=== PATIENT | female | born 1980 | race African-American/Black ===

== ENCOUNTER → 2020-03-18 | Outpatient (CLI) | payer BC ==
--- NOTE | 2020-03-18 15:48 | Diagnostic Imaging Report ---
EXAM: Bilateral breast ultrasound, limited. INDICATION: Bilateral nipple discharge. The diagnostic mammogram performed prior to this study failed to show any sign of malignancy. There is no abnormality to account for the patient's bilateral nipple discharge either. On this study, there is no discrete solid or cystic mass in either retroareolar region. There is no abnormality in the superior aspect of the right breast to coincide with the asymmetry seen on the mammogram. Most likely that finding was secondary to fibroglandular tissue. IMPRESSION: ACR category 1. There is no evidence of malignancy. There is no abnormality to account for the patient's bilateral nipple discharge either. Clinical follow-up is recommended. ACR BI-RADS Category 1: Negative. Result letter will be mailed to the patient. Note: At least 10% of breast cancer is not imaged by mammography. Dictated by: Dictated on workstation # [id number]
--- NOTE | 2020-03-18 16:35 | Diagnostic Imaging Report ---
EXAM: Digital mammogram, bilateral diagnostic. INDICATION: Bilateral nipple discharge COMPARISON: This is the patient's baseline study. At this time, she does complain of yellowish discharge from each nipple. The fibroglandular tissue in both breasts is dense. This does limit the sensitivity of this exam. There is no abnormality in either retroareolar region to account for the patient's nipple discharge. On the craniocaudad view of the right breast in the mid medial aspect of the breast approximately 6 mm from the nipple, there is an 8.2 mm asymmetry. This finding does not seem to persist on the tomographic images nor can it be identified with certainty on the true lateral and MLO views. There may be a small corresponding area of slightly increased density in the midportion of the breast on the MLO view, however. I suspect this asymmetry is secondary to fibroglandular tissue. Even so, I would recommend that ultrasound of the upper medial aspect of the right breast be performed for further study. Ultrasound of both retroareolar regions should also be performed. IMPRESSION: ACR category 0. There is no evidence for malignancy or for an abnormality to account for the patient's nipple discharge. Ultrasound of both breasts would be recommended for further study. ACR BI-RADS Category 0: Incomplete. (Needs additional imaging evaluation). Result letter will be mailed to the patient. Note: At least 10% of breast cancer is not imaged by mammography. Dictated by: Dictated on workstation # [id number]
== END ==
LOC: RAD 14:15
PROVIDERS: ATTEND Obstetrics & Gynecology
DX: N64.52 Nipple discharge (principal); Z80.3 Family history of malignant neoplasm of breast
CPT/HCPCS: 76642; 77066; G0279; 77062

== ENCOUNTER → 2021-08-01 | Outpatient (CLI) | payer BC ==
--- NOTE | 2021-08-01 09:51 | Diagnostic Imaging Report ---
INDICATION: Routine screening. COMPARISON: 03/18/2020. TECHNIQUE: 2D and 3D bilateral screening mammography was performed with CAD. FINDINGS: Both breasts are heterogeneously dense, limiting the sensitivity of mammography. There is a somewhat rounded density in the superior right breast at posterior depth, best seen on the MLO view. This appears to be laterally located on the tomographic images. Additional views are recommended. The left breast is unremarkable. No malignant-appearing microcalcifications are seen. The axillae are unremarkable. IMPRESSION: Right breast density. Additional views are recommended for further evaluation. ACR BI-RADS Category 0: Incomplete. (Needs additional imaging evaluation). Result letter will be mailed to the patient. Note: At least 10% of breast cancer is not imaged by mammography. Dictated by: Dictated on workstation # [id number]
== END ==
LOC: RAD 09:00
PROVIDERS: ATTEND Nurse Practitioner Family
DX: Z12.31 Encounter for screening mammogram for malignant neoplasm of breast (principal)
CPT/HCPCS: 77063; 77067

== ENCOUNTER → 2021-08-10 | Outpatient (CLI) | payer BC ==
--- NOTE | 2021-08-10 10:34 | Diagnostic Imaging Report ---
Ultrasound right breast Limited INDICATION: Abnormal mammogram The screening mammogram performed on 08/01/2019 raised the question of a new density in the superior aspect of the right breast. The diagnostic mammogram performed prior to the study failed to show any sign of malignancy. On this study there is a well-circumscribed avascular hypoechoic lesion with through-transmission in the 2 o'clock position of the breast approximately 2 to 3 cm from the nipple. This area measures 7 x 4 x 6 mm and has the appearance of simple cyst. This may well correspond to the finding of the mammogram. There is no solid mass identified. Even so, it may prove worthwhile to have a short-term (6 month) follow-up mammogram and ultrasound exam of the right breast for continued study. IMPRESSION: There is no evidence of malignancy. Recommendations as above. ACR BI-RADS Category 3: Probably benign findings. Dictated by: Dictated on workstation # [id number]
--- NOTE | 2021-08-11 11:12 | Diagnostic Imaging Report ---
Unilateral diagnostic right mammogram INDICATION: Screening mammogram The recent screening mammogram performed on 08/01/2021 noted a somewhat rounded density in the superior right breast at posterior depth. This is only clearly seen on the MLO view. This did appear to be in the lateral aspect of the breast on the tomographic images however. The compression view of the area of concern in the MLO projection failed to show any evidence for underlying abnormality. There is no abnormal density identified on the true lateral or XCC view either. However the fibroglandular tissue in this portion of the breast is dense and could mask a lesion. I would recommend that ultrasound be performed for further study. IMPRESSION: There is no evidence for malignancy. Ultrasound would be recommended for further study however. ACR BI-RADS Category 0: Incomplete. (Needs additional imaging evaluation). Result letter will be mailed to the patient. Note: At least 10% of breast cancer is not imaged by mammography. Dictated by: Dictated on workstation # [id number]
== END ==
LOC: RAD 09:15
PROVIDERS: ATTEND Nurse Practitioner Family
DX: R92.2 Inconclusive mammogram (principal)
CPT/HCPCS: 76642; 77065; G0279

== ENCOUNTER → 2022-02-23 | Outpatient (CLI) | payer BC ==
--- NOTE | 2022-02-23 20:16 | Diagnostic Imaging Report ---
INDICATION: Follow-up exam. EXAMINATION: Ultrasound of the right breast at 0921. FINDINGS: The previous right breast ultrasound exam of 08/10/2021 suggested a follow-up mammogram and ultrasound exam of the left breast for further evaluation of the suspected benign-appearing cyst in the 2 o'clock position. On this exam, the well-circumscribed hypoechoic lesion with through-transmission in the 2 o'clock position of the right breast seen previously is again evident and does not appear to have changed adversely. I do suspect that this is a benign process such as a simple cyst. There is no other abnormality identified. IMPRESSION: 1. The suspected benign cyst in the right breast seen previously is again evident and no different. There is no evidence for malignancy. 2. The patient should have her annual bilateral screening mammogram on schedule in the July of 2022. ACR BI-RADS Category 2: Benign findings. Result letter will be mailed to the patient. Note: At least 10% of breast cancer is not imaged by mammography. Dictated by: Dictated on workstation # [id number]
== END ==
LOC: RAD 08:59
PROVIDERS: ATTEND Family Medicine
DX: N60.01 Solitary cyst of right breast (principal)